=== PATIENT | female | born 1965 | race Caucasian/White ===

== ENCOUNTER → 2018-02-15 | Outpatient (CLI) | payer BC, OTHER | LOC: BMCIMAGING 15:55 | PROVIDERS: ATTEND Family Medicine | DX: M25.531 Pain in right wrist (principal) ==

== ENCOUNTER → 2018-12-06 | Outpatient (CLI) | payer BC | LOC: BMCIMAGING 13:56 | PROVIDERS: ATTEND Emergency Medicine | DX: M79.671 Pain in right foot (principal) ==